=== PATIENT | female | born 1990 | race Caucasian/White ===

== ENCOUNTER 2017-07-24 16:01 | Inpatient (IN) | payer MEDICAID, OTHER ==
[~2017-07-24] VITALS: Ht 162.6 cm; Wt 80.0 kg
[2017-07-24] MEDS ORDERED: ZOLPIDEM TARTRATE 10 MG TABLET PO PRN (17:00)
[2017-07-24] MEDS ORDERED: HALOPERIDOL 5 MG TABLET PO PRN (17:00)
[2017-07-24] MEDS ORDERED: LORazepam 2 MG TABLET PO PRN (17:00)
[2017-07-24] MEDS ORDERED: DiphenhydrAMINE HCL 25 MG CAPSULE PO ONE (19:15)
[2017-07-24] MEDS ORDERED: LORazepam 2 MG TABLET PO ONE (19:15)
[2017-07-24 20:27] VITALS: BP 124/90
[2017-07-24] MEDS ORDERED: INFLUENZA VIRUS VACCINE QVS 2017-18 (3YR+)/PF 60 MCG/0.5 ML SYRINGE IM ONE (20:45)
[2017-07-24] MEDS ORDERED: ACETAMINOPHEN 325 MG TABLET PO PRN (21:45)
[2017-07-24] MEDS ORDERED: IBUPROFEN 600 MG TABLET PO PRN (21:45)
[2017-07-24 22:00] VITALS: BP 126/91
[2017-07-25 05:30] VITALS: BP 105/69
[2017-07-25 08:19] VITALS: BP 135/73
[2017-07-25] MEDS ORDERED: CloNIDine HCL 0.1 MG TABLET PO PRN (08:30)
[2017-07-25] MEDS ORDERED: BENZOCAINE/MENTHOL LOZENGE MM PRN (08:30)
[2017-07-25] MEDS ORDERED: LOPERAMIDE HCL 2 MG CAPSULE PO PRN (08:30)
[2017-07-25] MEDS ORDERED: BACITRACIN 28.4 GM OINTMENT TP PRN (08:30)
[2017-07-25] MEDS ORDERED: MAG HYDROX/AL HYDROX/SIMETH ES 30 ML SUSPENSION UDCUP PO PRN (08:30)
[2017-07-25] MEDS ORDERED: ONDANSETRON HCL 4 MG TABLET PO PRN (08:30)
[2017-07-25] MEDS ORDERED: ALBUTEROL SULFATE HFA 90 MCG/PUFF 8 GM INHALER IH PRN (08:30)
[2017-07-25] MEDS ORDERED: MAGNESIUM HYDROXIDE SUSPENSION 30 ML UDCUP PO PRN (08:30)
[2017-07-25] MEDS ORDERED: PETROLATUM,WHITE 71 GM JELLY TP PRN (08:30)
[2017-07-25 16:10] VITALS: BP 131/77
[2017-07-25] MEDS: BusPIRone HCL 5 MG TABLET PO SCH (17:14)
[2017-07-25] MEDS ORDERED: BusPIRone HCL 5 MG TABLET PO SCH (21:00)
[2017-07-26 01:09] VITALS: BP 121/90
[2017-07-26 08:12] VITALS: BP 103/62
[2017-07-26] MEDS: BusPIRone HCL 5 MG TABLET PO SCH (08:34)
[2017-07-26] MEDS ORDERED: BUSP5TAB20 PO ×2 (11:56)
== END 2017-07-26 13:55 | disposition home or self-care (01) | DRG 751 ==
LOC: EDBD → EMS 16:03 → B2S 18:46
DX: F33.2 Major depressive disorder, recurrent severe without psychotic features (principal); F22 Delusional disorders; R45.851 Suicidal ideations; F17.200 Nicotine dependence, unspecified, uncomplicated; F12.90 Cannabis use, unspecified, uncomplicated; F41.9 Anxiety disorder, unspecified; G47.00 Insomnia, unspecified; M54.9 Dorsalgia, unspecified; Z71.6 Tobacco abuse counseling; Z71.51 Drug abuse counseling and surveillance of drug abuser; Z28.21 Immunization not carried out because of patient refusal
CPT/HCPCS: 99285

== ENCOUNTER 2017-08-18 17:49 | Emergency (ER) | payer MEDICAID, OTHER ==
[~2017-08-18] VITALS: Ht 160 cm; Wt 75.0 kg
[~2017-08-18 17:49] MED LIST: BUSP5TAB20 PO
[2017-08-18 17:54] VITALS: BP 119/76
== END 2017-08-18 21:05 | disposition home or self-care (01) ==
LOC: EDBD → EMS 17:50
DX: Z76.0 Encounter for issue of repeat prescription (principal); F41.9 Anxiety disorder, unspecified; F17.210 Nicotine dependence, cigarettes, uncomplicated; F12.90 Cannabis use, unspecified, uncomplicated
CPT/HCPCS: 99283; 99406

== ENCOUNTER 2017-08-26 00:10 | Emergency (ER) | payer OTHER ==
[~2017-08-26] VITALS: Ht 160 cm; Wt 72.7 kg
[2017-08-26 01:27] VITALS: BP 127/88
== END 2017-08-26 02:24 | disposition home or self-care (01) ==
LOC: EMS 00:11 → EDBD 00:11 → EMS 02:24
DX: Z76.0 Encounter for issue of repeat prescription (principal); F43.10 Post-traumatic stress disorder, unspecified; F41.9 Anxiety disorder, unspecified; F17.210 Nicotine dependence, cigarettes, uncomplicated; F12.10 Cannabis abuse, uncomplicated
CPT/HCPCS: 99283